=== PATIENT | female | born 1990 | race Caucasian/White ===

== ENCOUNTER 2019-04-05 06:01 | Inpatient (IN) ==
[2019-04-05] MEDS ORDERED: CeFAZolin Premix DUPLEX 2,000 MG/50 ML BAG IVPB ONE (06:14)
[2019-04-05] MEDS ORDERED: Famotidine 20 MG/2 ML VIAL IVP ONE (06:14)
[2019-04-05] MEDS ORDERED: Metoclopramide 10 MG/2 ML VIAL IVP ONE (06:14)
[2019-04-05] MEDS ORDERED: Ringers Solution, Lactated 1,000 ML IVC ONE (06:14)
[2019-04-05 07:17] LABS: Basophils # 0.1 K/mcL (0.0-0.2); Basophils % 0.5 %; Eosinophils # 0.1 K/mcL (0.0-0.6); Eosinophils % 0.6 %; Hematocrit 35.8 % (35.3-44.9); Hemoglobin 11.8 g/dL (11.5-15.4); Immature Granulocytes % 0.2 % (0-4); Lymphocytes # 3.4 K/mcL (0.6-4.6); Lymphocytes % 36.6 %; Mean Corpuscular Volume 81.9 fL (83.0-100.0); Mean Platelet Volume 9.6 fL (9.4-12.4); Monocytes # 0.8 K/mcL (0.0-1.3); Monocytes % 8.7 %; Platelet Count 287 K/mcL (140-400); Red Blood Count 4.37 M/mcL (3.82-4.97); Red Cell Distribution Width 12.4 % (11.5-14.5); Segmented Neutrophils % 53.4 %; White Blood Count 9.3 K/mcL (4.3-11.1)
[2019-04-05] MEDS ORDERED: Ondansetron 4 MG/2 ML VIAL ONE (07:40)
[2019-04-05] MEDS ORDERED: *HR* Midazolam HCl 2 MG/2 ML VIAL ONE (07:40)
[2019-04-05] MEDS ORDERED: Dexamethasone 4 MG/ML VIAL ONE (07:40)
[2019-04-05] MEDS ORDERED: *HR* FentaNYL (PF) 100 MCG/2 ML VIAL ONE (07:41)
[2019-04-05] MEDS ORDERED: EPHEDrine 50 MG/ML VIAL ONE (07:41)
[2019-04-05] MEDS ORDERED: *HR* Morphine Sulfate/PF 10 MG/10 ML AMPUL ONE (07:41)
[2019-04-05] MEDS ORDERED: Ringers Solution, Lactated 1,000 ML ONE (07:44)
[2019-04-05] MEDS ORDERED: *HR* Labetalol 20 MG/4 ML SYRINGE IVP ONE (08:27)
[2019-04-05] MEDS ORDERED: Ketorolac 30 MG/ML VIAL ONE (08:40)
[2019-04-05] MEDS ORDERED: *HR* Oxytocin 10 UNIT/ML VIAL IM ONE (08:40)
[2019-04-05 09:09] LABS: Amphetamine Screen,Urine Negative ng/mL (Cutoff=1000); Barbiturate Screen,Urine Negative ng/mL (Cutoff=200); Benzodiazepines Screen,Urine Negative ng/mL (Cutoff=200); Cannabinoid Screen,Urine Negative ng/mL (Cutoff = 50); Cocaine Screen,Urine Negative ng/mL (Cutoff= 300); Opiate Screen,Urine Negative ng/mL (Cutoff=300); Phencyclidine Screen,Urine Negative ng/mL (Cutoff=25)
[2019-04-05] MEDS ORDERED: Esmolol 100 MG/10 ML VIAL IVP ONE (09:10)
[2019-04-05] MEDS ORDERED: Oxytocin 20 units/ LR 1000 mL 20 UNIT/1,000 ML BAG IVC ONE (09:37)
[2019-04-05] MEDS ORDERED: Simethicone 80 MG TAB.CHEW PO PRN (13:36)
[2019-04-05] MEDS ORDERED: Sennosides 8.6 MG TABLET PO PRN (13:36)
[2019-04-05] MEDS ORDERED: Ondansetron 4 MG/2 ML VIAL IVP PRN (13:36)
[2019-04-05] MEDS ORDERED: Metoclopramide 10 MG/2 ML VIAL IVP PRN (13:36)
[2019-04-05] MEDS ORDERED: Rho Immune Globulin 1,500 UNIT SYRINGE IM ONE (13:36)
[2019-04-05] MEDS ORDERED: Oxytocin 20 units/ LR 1000 mL 20 UNIT/1,000 ML BAG IVC SCH (13:36)
[2019-04-05] MEDS ORDERED: *HR* OxyCODONE/APAP 5/325 TABLET PO PRN (13:36)
[2019-04-05] MEDS: Ibuprofen 600 MG TABLET PO SCH (18:58)
[2019-04-05] MEDS: Acetaminophen 325 MG TABLET PO SCH (18:58)
[2019-04-06] MEDS: Acetaminophen 325 MG TABLET PO SCH ×3 (00:50→14:38)
[2019-04-06] MEDS: Ibuprofen 600 MG TABLET PO SCH ×3 (00:50→11:15)
[2019-04-06 06:02] LABS: Basophils % 0.2 %; Hematocrit 27.3 % (35.3-44.9); Immature Granulocytes % 0.6 % (0-4); Lymphocytes # 3.9 K/mcL (0.6-4.6); Lymphocytes % 21.9 %; Mean Corpuscular HGB Conc 32.6 g/dL (31.6-35.5); Mean Corpuscular Hemoglobin 26.3 pg (28.0-33.3); Mean Corpuscular Volume 80.5 fL (83.0-100.0); Mean Platelet Volume 9.8 fL (9.4-12.4); Monocytes # 1.4 K/mcL (0.0-1.3); Monocytes % 8.1 %; Platelet Count 321 K/mcL (140-400); Red Blood Count 3.39 M/mcL (3.82-4.97); Red Cell Distribution Width 12.8 % (11.5-14.5); Segmented Neutrophils % 69.2 %
[2019-04-06 06:07] LABS: Hemoglobin 8.9 g/dL (11.5-15.4); Neutrophils # 12.3 K/mcL (1.6-8.9); White Blood Count 17.8 K/mcL (4.3-11.1)
[2019-04-06 07:56] VITALS: BP 111/66
[2019-04-06] MEDS ORDERED: Prenatal Vit/FA 1 EACH TABLET PO SCH (09:00)
== END 2019-04-06 17:55 | disposition home or self-care (01) | DRG 788 ==
LOC: 1NENULAB 06:01 → 1NENUOBS 11:16
PROVIDERS: ADMIT Obstetrics & Gynecology; ATTEND Obstetrics & Gynecology